=== PATIENT | female | born 1960 | race Asian ===

== ENCOUNTER 2021-02-13 14:49 | Emergency (ER) | payer OTHER, SELFPAY ==
[2021-02-13] VITALS (24 sets, daily range): BP systolic 122–186; BP diastolic 64–138; PULSE 65–175; RESP 12–28; TEMP 36.9; O2SAT 93–99; BMI 27.1
--- NOTE | 2021-02-13 15:02 | ED.GENADULT ---
HPI - General Adult General Chief complaint: Arrhythmia/Palpitations Stated complaint: heart beating fast Time Seen by Provider: 02/13/21 14:53 Source: patient Mode of arrival: Ambulatory Limitations: no limitations History of Present Illness HPI narrative: Patient is a 60-year-old female who arrives to the emergency department for a fast heart rate. She states that it started at 1215 today which is approximately 3 hours prior to arrival here in the ER. She was getting ready for lunch when the symptoms occurred. She did receive her COVID vaccine yesterday. She denies any chest pain does feel like her heart is beating fast. No shortness of breath. She has had symptoms like this in the past but they have all resolved on their own. She is not on anticoagulation. Related Data Previous Rx's Medication Instructions Recorded rivaroxaban [Xarelto] 15 mg PO DAILY 30 Days #30 tab 02/13/21 Allergies Allergy/AdvReac Type Severity Reaction Status Date / Time No Known Drug Allergies Allergy Verified 02/13/21 15:15 Review of Systems Constitutional Constitutional: Denies fever(s) and Denies headache(s) ENT Ears, Nose, Mouth, and Throat: Denies headache(s) Cardiovascular Cardiovascular: Denies chest pain, Reports rapid heart rate, Denies irregular heart rhythm and Denies dyspnea Respiratory Respiratory: Denies cough and Denies dyspnea Gastrointestinal Gastrointestinal: Denies abdominal pain, Denies nausea and Denies vomiting Genitourinary Genitourinary: Denies dysuria Genitourinary: Denies dysuria Musculoskeletal Musculoskeletal: Denies myalgias Integumentary/Breasts Skin/Breast: Denies rash Neurologic Neurologic: Denies headache(s) Hematologic/Lymphatic On Anticoagulants: No Allergic/Immunologic Allergic/Immunologic: Denies urticaria Patient History Medical History Healthy adult Social History Smoking Status: Never smoker Exam Initial Vital Signs Initial Vital Signs: Vital Signs Temperature 98.4 F 02/13/21 14:50 Pulse Rate 175 H 02/13/21 14:50 Respiratory Rate 17 02/13/21 14:50 Blood Pressure 186/138 H 02/13/21 14:50 Pulse Oximetry 97 02/13/21 14:50 Const General: cooperative and comfortable Limitations: mental status not altered [facility] Head: normal to inspection and normocephalic Resp Effort & Inspection: normal respiratory effort Auscultation: clear to auscultation bilaterally Cardio Rate: tachycardic Rhythm: regular rhythm GI Inspection: non-distended Palpation: soft Skin Lesions: no lesions Rashes: no rashes Neuro General: patient alert, patient awake and patient oriented x3 Cognition: normal cognition Speech: speech normal Extrem General: normal to inspection and capillary refill normal Psych Appearance: grossly normal and well kempt Procedures Cardioversion Consent Signed: Yes Indication: Tachycardia Stability: Stable Number of attempts (shocks): 1 Joules used: 150 Cardiac rhythm post-cardioversion: Sinus rhythm Procedural Sedation Consent signed: Yes Time out performed: Yes Indication: cardioversion Presedation Evaluation: See HPI ASA Class: I Mallampati Airway Classification: Class I Preparation: monitor worker applied, pulse oximeter, capnometry used, supplemental O2 applied and suction/airway equipment at bedside Fentanyl: IV Fentanyl dose (mcg): 12 IV Propofol dose (mg): 50 Intraservice time/total sedation time (min): 10 ED Sedation Level: Moderate (Concious) Patient Tolerated Procedure: Well Course Orders Ordered: ED Orders 02/13/21 14:54 EKG-12 Lead Stat 02/13/21 15:03 RT Consult Eval and Treat Now 02/13/21 15:05 Magnesium Stat 02/13/21 15:08 Basic Metabolic Panel Stat Complete Blood Count AUTO DIFF Stat 02/13/21 15:35 EKG-12 Lead Stat Discontinued Medications Fentanyl (Fentanyl 100 Mcg/2 Ml Inj) 12.5 mcg IV NOW ONE Stop: 02/13/21 15:08 Last Admin: 02/13/21 15:15 Dose: 12.5 mcg Documented by: MEETA Sodium Chloride (Normal Saline 0.9%) 1,000 mls @ 1,000 mls/hr IV BOLUS ONE Stop: 02/13/21 16:02 Last Admin: 02/13/21 15:15 Dose: 1,000 mls/hr Documented by: MEETA Propofol (Propofol 200 Mg/20 Ml Vial) 10 mg IV NOW ONE Stop: 02/13/21 15:08 Last Admin: 02/13/21 15:16 Dose: 10 mg Documented by: MEETA Rivaroxaban (Rivaroxaban 10 Mg Tablet) 15 mg PO NOW ONE Stop: 02/13/21 16:26 Vital Signs Vital signs: Vital Signs - 8 hr 02/13/21 14:50 02/13/21 14:56 02/13/21 14:57 Temperature 98.4 F Pulse Rate 175 H 170 H 168 H Respiratory Rate 17 Blood Pressure 186/138 H 186/138 H Blood Pressure [Left Arm] Pulse Oximetry 97 97 99 02/13/21 15:00 02/13/21 15:19 02/13/21 15:22 Temperature Pulse Rate 172 H 167 H Respiratory Rate 19 18 12 Blood Pressure Blood Pressure [Left Arm] Pulse Oximetry 99 98 02/13/21 15:26 02/13/21 15:30 02/13/21 15:32 Temperature Pulse Rate 84 160 H 88 Respiratory Rate 18 19 21 Blood Pressure Blood Pressure [Left Arm] Pulse Oximetry 93 98 95 02/13/21 15:33 02/13/21 15:38 02/13/21 15:45 Temperature Pulse Rate 80 79 Respiratory Rate 18 23 Blood Pressure 143/64 H Blood Pressure [Left Arm] 122/69 127/75 Pulse Oximetry 95 95 Medical Decision Making Lab Data Lab results reviewed: Yes I reviewed the patient's lab results. Result diagrams: 02/13/21 15:08 02/13/21 15:08 Labs: Lab Results 02/13/21 02/13/21 02/13/21 Range/Units 15:05 15:08 15:08 WBC 8.3 (4.5-11.0) X10^3/uL RBC 5.25 H (4.0-5.2) X10^6/uL Hgb 16.0 (12.0-16.0) g/dL Hct 48.5 H (36-46) % MCV 92.4 (80-100) fL MCH 30.6 (26-34) PG MCHC 33.1 (30-36) % RDW 13.1 (11.6-14.8) % Plt Count 216 (150-400) X10^3/uL Neut % (Auto) 64.9 (50-75) % Lymph % (Auto) 28.0 (25-40) % [place] % (Auto) 5.2 (3-14) % Eos % (Auto) 1.4 L (2-4) % Baso % (Auto) 0.5 (0-2) % Neut # (Auto) 5400 (5584-0424) /uL Lymph # (Auto) 2300 (4130-9209) /uL [place] # (Auto) 400 (0-900) /uL Eos # (Auto) 100 (0-450) /uL Baso # (Auto) 0 (0-100) /uL Sodium 144 (137-145) mmol/L Potassium 4.2 (3.4-5.1) mmol/L Chloride 106 (98-107) mmol/L Carbon Dioxide 30 (22-32) mmol/L BUN 15 (7-17) mg/dL Creatinine 0.57 (0.52-1.04) mg/dL Estimated GFR > 60.0 (>60) mL/min BUN/Creatinine Ratio 26.3 H (6-22) Glucose 138 H (80-110) mg/dL Calcium 10.1 (8.4-10.2) mg/dL Magnesium 2.4 H (1.6-2.3) mg/dL Point of Care Testing Test Results Negative Point of care testing: Point of Care Testing Test Results Negative ECG Data Attestation: I personally reviewed and interpreted this ECG as follows: Prior ECG tracings: not available for review Interpretation: Supraventricular tachycardia Ventricular rate 167 Normal axis Normal QRS QTC [address] T wave changes Post cardioversion EKG Sinus rhythm Ventricular rate is 75 Normal QRS Normal QTC LVH No ST T wave changes MDM Narrative Medical decision making narrative: Patient was tachycardic upon arrival. Was difficult to see whether it was a sinus tachycardia or an atrial fibrillation/atrial flutter. Consent was signed and she was cardioverted with 12.5 of fentanyl and 50 of propofol. She had no apnea. No hypotension. No hypoxia. She tolerated the procedure very well. She was sinus rhythm afterwards. 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 She has an appointment with her primary doctor in 1 week from now. She was instructed to keep that appointment. She was given return precautions. She was given 1st dose of Xarelto here and sent home with a prescription for the next month. She expressed understanding and agreement. Discharge Plan Departure Patient Disposition: Home Clinical Impression: Supraventricular tachycardia Instructions: Arrhythmias Activity Restrictions/Additional Instructions: Take the anticoagulation as directed. Keep all of your scheduled medical appointments to include appointment with your primary doctor next week. Also recommend that you contact your motor vehicle license clerk for follow-up. Return to the emergency department for any new or worsening symptoms Prescriptions: New Xarelto 15 mg tablet 15 mg PO DAILY 30 Days Qty: 30 RF: 0
[2021-02-13] MEDS: fentaNYL 100 MCG/2 ML INJ 12.5 MCG IV (15:15)
[2021-02-13] MEDS: SODIUM CHLORIDE 0.9% 1,000 ML 1000 ML IV (15:15)
[2021-02-13] MEDS: propofoL 200 MG/20 ML VIAL 10 MG IV (15:16)
[2021-02-13 15:26] LABS: Add Manual Diff / Slide Review NO; Basophils Absolute Auto 0 /uL (0-100); Basophils Percent Auto 0.5 % (0-2); Eosinophils Absolute Auto 100 /uL (0-450); Eosinophils Percent Auto 1.4 % (2-4); Hematocrit 48.5 % (36-46); Lymphocytes Absolute Auto 2300 /uL (1100-4500); Mean Corpuscular HGB Conc 33.1 % (30-36); Mean Corpuscular Hemoglobin 30.6 PG (26-34); Mean Corpuscular Volume 92.4 fL (80-100); Monocytes Absolute Auto 400 /uL (0-900); Monocytes Percent Auto 5.2 % (3-14); Neutrophils Absolute Auto 5400 /uL (1500-7000); Neutrophils Percent Auto 64.9 % (50-75); Platelet Count 216 X10^3/uL (150-400); Red Blood Cell Count 5.25 X10^6/uL (4.0-5.2); Red Cell Distribution Width 13.1 % (11.6-14.8); White Blood Cell Count 8.3 X10^3/uL (4.5-11.0)
[2021-02-13 15:27] LABS: BUN Creatinine Ratio 26.3 (6-22); Blood Urea Nitrogen 15 mg/dL (7-17); Calcium 10.1 mg/dL (8.4-10.2); Carbon Dioxide 30 mmol/L (22-32); Chloride 106 mmol/L (98-107); Estimated Glomerular Filt Rate > 60.0 mL/min (>60); Glucose 138 mg/dL (80-110); HEMOLYSIS 17 (0-50); Potassium 4.2 mmol/L (3.4-5.1); Sodium 144 mmol/L (137-145)
[2021-02-13 15:50] LABS: Magnesium 2.4 mg/dL (1.6-2.3)
[2021-02-13] MEDS: RIVAROXABAN 10 MG TABLET 15 MG PO (16:42)
== END 2021-02-13 16:54 | disposition home or self-care (01) ==
PROVIDERS: Emergency Provider Emergency Medicine
DX: I47.1 Supraventricular tachycardia (principal)
CPT/HCPCS: 36415; 80048; 83735; 85025; 92960; 93005; 96361; 96374; 96375; 99152; 99285; J2704; J3010

== ENCOUNTER → 2021-06-30 13:03 | Outpatient (CLI) | payer OTHER, SELFPAY ==
--- NOTE | 2021-06-30 | DI.ECHO.S_ITS ---
[place] +---------+ [facility] +---------+ : : [address] : : : : [phone] : : : : Phone: [phone]+ Echocardiogram Report + + :Name: SUZY RENEE Study Date: 06/30/2021 Height: 61 in : :[facility] ReadingLocation: Weight: 140 lb : : Gender: Female BSA: 1.6 m2 : :: 1960 Age: 60 yrs BP: 185/101 mmHg: :Reason For Study: Murmur : :Ordering Physician: Randy : :Miguel A Herman Performed By: Claudio Cantu : :Referring: RANDY HERMAN : + + Interpretation Summary 1) Normal left ventricular size, wall motion, and systolic function (EF 55- 60%). 2) Normal right ventricular size and functionl 3) Nno significant valvular abnormalities. 4) Hypertension present during the study (BP 185/101mmHg). 5) No prior Echo available for comparison. Procedure: A two-dimensional transthoracic echocardiogram with color flow and Doppler was performed. The study quality was technically adequate. There is no prior echocardiogram noted for this patient. The patient was in sinus rhythm with heart rates between 50-58 bpm during the exam. Left Ventricle: The left ventricle is normal in size and wall thickness. Left ventricular systolic function is normal. The ejection fraction is estimated to be 55-60%. There are no focal wall motion abnormalities. Diastolic parameters suggest probable normal left ventricular diastolic function and normal filling pressures. Right Ventricle: The right ventricle is normal in size and function. Atria: Both atria are normal in size. There is no Doppler evidence for an interatrial shunt. Mitral Valve: The mitral valve is normal in structure and function. There is trace mitral regurgitation. Aortic Valve: The aortic valve is normal in structure and function. There is no aortic valve stenosis. No aortic regurgitation is present. Tricuspid Valve: The tricuspid valve is normal in structure and function. There is a trace or physiologic amount of tricuspid regurgitation. Pulmonary artery pressures cannot be estimated because of the lack of a measurable TR jet velocity but the IVC suggests a CVP of around 3 mmHg. Pulmonic Valve: The pulmonic valve is not well visualized. There is no pulmonic valvular regurgitation. Great Vessels: The aortic root is normal size. The dimensions of the ascending aorta are normal. The IVC is of normal diameter and collapses greater than 50% with a sniff. This suggests a low right atrial pressure of 3 mm Hg. Pericardium/ Pleura There is no pericardial effusion. There is no pleural effusion. MMode/2D Measurements & Calculations LVIDd: 4.9 cm LVOT diam: 2.0 cm LVIDs: 3.0 cm Ao root diam: 3.0 cm FS: 38.8 % asc Aorta Diam: 3.6 cm IVSd: 0.80 cm LVPWd: 0.60 cm LV erwin. diameter/BSA (cm/m^2): 3.0 LV sys. diameter/BSA (cm/m^2): 1.8 LA dimension: 3.5 cm RA long axis: 4.1 cm LA A2 area: 19.4 cm2 LA A4 area: 12.1 cm2 LA length (vol): 5.2 cm LA vol: 38.2 ml LA vol index: 23.6 ml/m2 TAPSE_phl: 1.8 cm Doppler Measurements & Calculations Ao V2 max: 146.0 cm/sec LVOT Max Braulio: 110.0 cm/sec Ao V2 mean: 99.7 cm/sec LV V1 max P.8 mmHg Ao max P.0 mmHg LV V1 VTI: 26.1 cm Ao mean P.0 mmHg MAIDA(I,D): 2.6 cm2 Ao V2 VTI: 32.1 cm MAIDA(V,D): 2.4 cm2 sev ratio: 0.81 MAIDA indexed to BSA (cm^2/m^2): 1.6 MV E max braulio: 65.1 cm/sec PA V2 max: 77.5 cm/sec MV A max braulio: 95.5 cm/sec PA V2 mean: 55.2 cm/sec MV E/A: 0.68 PA mean P.0 mmHg Med Peak E' Braulio: 7.9 cm/sec PA pr(Accel): 54.3 mmHg E/E' med: 8.2 Lat Peak E' Braulio: 11.3 cm/sec E/E' lat: 5.8 E/e' average: 7.0 MV dec time: 0.22 sec SV(LVOT): 82.0 ml AV VR_phl: 0.75 MAIDA(VTI)/BSA_phl: 1.6 MV P1/2t-pr_phl: 65.0 msec Reading Physician:06:39 PM
--- NOTE | 2021-06-30 19:35 | DI.NM.S_ITS ---
DATE OF SERVICE: 06/30/2021 PROCEDURE: Exercise stress test. INDICATION: Palpitation. CARDIAC STRESS: The patient underwent exercise stress test under the supervision of an attending staff. She walked on Perez protocol for 7 minutes and 49 seconds, achieved 91 percent of target heart rate with maximum heart rate 143 beats per minute. Baseline blood pressure 136/80. Peak blood pressure 200/94. 10.1 METs of workload achieved. ZAHCARY -18 percent. No ischemic symptoms. Baseline rhythm was sinus. During stress, there were no convincing ischemic changes. There were no significant arrhythmias. CONCLUSION: Exercise stress test is negative for inducible ischemia. Normal hemodynamic response. No anginal symptoms. Functional aerobic impairment -18 percent and 10.1 metabolic equivalents of workload. Overall low-risk exercise stress test. Rossy Carrillo - Johnny/annamarie doc#: [id number]/job#: [id number] dd: 06/30/2021 17:37:00 dt: 06/30/2021 19:03:00 DICTATING /COPIES TO: Jailyn Briseno MD COPIES MNE: ADRIANO;
== END ==
PROVIDERS: Referring Provider Internal Medicine Cardiovascular Disease; Visit Provider Internal Medicine Cardiovascular Disease
DX: R00.0 Tachycardia, unspecified (principal); R01.1 Cardiac murmur, unspecified; R00.2 Palpitations
CPT/HCPCS: 93017; 93306

== ENCOUNTER 2021-09-09 11:46 | Inpatient (IN) | payer OTHER, SELFPAY ==
[2021-09-09] VITALS (35 sets, daily range): BP systolic 84–135; BP diastolic 51–89; PULSE 56–98; RESP 16–28; TEMP 36.3–36.9; O2SAT 93–99; BMI 26.6
--- NOTE | 2021-09-09 12:07 | DI.RAD.S_ITS ---
PROCEDURE: XR CHEST 1V INDICATIONS: Chest pain TECHNIQUE: One view of the chest was acquired. COMPARISON: None. FINDINGS: Surgical changes and devices: None. Lungs and pleura: Lungs are clear. No pleural effusions or pneumothorax. Mediastinum: Mediastinal contours appear normal. Heart size is normal. Bones and chest wall: No suspicious bony lesions. Overlying soft tissues appear unremarkable. IMPRESSION: No acute cardiopulmonary process demonstrated radiographically. Dictated by: Ruddy Mtz M.D. on 09/09/2021 at 12:47 Approved by: Ruddy Mtz M.D. on 09/09/2021 at 12:47
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
[2021-09-09 12:58] LABS: Add Manual Diff / Slide Review NO; Basophils Absolute Auto 0 /uL (0-100); Basophils Percent Auto 0.2 % (0-2); Eosinophils Absolute Auto 0 /uL (0-450); Eosinophils Percent Auto 0.2 % (2-4); Hematocrit 41.4 % (36-46); Lymphocytes Absolute Auto 1200 /uL (1100-4500); Lymphocytes Percent Auto 11.4 % (25-40); Mean Corpuscular HGB Conc 33.8 % (30-36); Mean Corpuscular Volume 91.5 fL (80-100); Monocytes Absolute Auto 500 /uL (0-900); Monocytes Percent Auto 4.5 % (3-14); Neutrophils Absolute Auto 8600 /uL (1500-7000); Neutrophils Percent Auto 83.7 % (50-75); Platelet Count 194 X10^3/uL (150-400); Red Blood Cell Count 4.52 X10^6/uL (4.0-5.2); Red Cell Distribution Width 12.3 % (11.6-14.8); White Blood Cell Count 10.3 X10^3/uL (4.5-11.0)
[2021-09-09 13:12] LABS: Alanine Aminotransferase 18 IU/L (<35); Albumin 4.4 g/dL (3.5-5.0); Albumin Globulin Ratio 1.4 (1.0-2.8); Alkaline Phosphatase 89 U/L (38-126); Aspartate Aminotransferase 31 IU/L (14-36); BUN Creatinine Ratio 30.2 (6-22); Bilirubin Total 0.5 mg/dL (0.2-1.3); Blood Urea Nitrogen 16 mg/dL (7-17); Calcium 9.4 mg/dL (8.4-10.2); Carbon Dioxide 21 mmol/L (22-32); Chloride 106 mmol/L (98-107); Creatine Kinase 105 U/L (30-135); Estimated Glomerular Filt Rate > 60.0 mL/min (>60); Globulin 3.2 g/dL (1.7-4.1); Glucose 123 mg/dL (80-110); HEMOLYSIS < 15 (0-50); Lipase 47 U/L (23-300); Potassium 4.4 mmol/L (3.4-5.1); Sodium 136 mmol/L (137-145); Total Protein 7.6 g/dL (6.3-8.2)
[2021-09-09 13:27] LABS: CKMB % Relative Index 4.4 % (1.5-5.0); Creatine Kinase MB 4.67 ng/mL (<2.37)
[2021-09-09 14:15] LABS: NT-proBNP (BNP-Adult 18+) 122 pg/mL (<125)
[2021-09-09] MEDS: ASPIRIN 81 MG CHEW TAB 324 MG PO (14:18)
[2021-09-09] MEDS: HEPARIN 5,000 UNIT/ML VIAL 4000 UNIT IV (14:21)
[2021-09-09] MEDS: HEPARIN DRIP 25,000 UNIT/500 ML IV.SOLN 15.567 UNIT IV (14:22)
[2021-09-09 14:26] LABS: D Dimer < 200 ng/mL (<230)
[2021-09-09 14:27] LABS: Prothrombin Time 11.1 SECONDS (10.1-12.7)
[2021-09-09 14:29] LABS: PTT Partial Thromboplastin Tim 32 SECONDS (26.4-36.2)
[2021-09-09 16:01] LABS: COVID19 -Nasal RAPID Negative (Negative)
[2021-09-09] MEDS: NITROGLYCERIN 0.4 MG SL TAB SL (16:17)
[2021-09-09] MEDS: CLOPIDOGREL 75 MG TABLET 600 MG PO (17:47)
[2021-09-09 19:16] LABS: COVID19 - ADMIT (NP swab/PCR) Negative (Negative)
--- NOTE | 2021-09-09 19:26 | PC.ADMIT ---
[address] Admission Note: Patient arrived to floor at 18:35, Alert and oriented x 4, shown how to use call light, patient on heparin drip infusing at 15.5ml/hr. Denies SOB or chest pain. Bed brakes locked. VSS, afebrile. The patient,Rossy Carrillo,60 y/o, was given written information regarding hospital policies, unit procedures and contact persons. Patient's smoking status: Never smoker. Vital Signs - 8 hr 09/09/21 12:05 09/09/21 14:30 09/09/21 14:31 Temperature 98.0 F Pulse Rate 98 H 79 Respiratory Rate 16 28 H Blood Pressure 135/89 108/78 108/78 Pulse Oximetry 97 96 09/09/21 15:00 09/09/21 15:31 09/09/21 15:32 Temperature Pulse Rate 72 80 79 Respiratory Rate 19 Blood Pressure 109/72 118/81 Pulse Oximetry 96 98 96 09/09/21 15:45 09/09/21 16:00 09/09/21 16:15 Temperature Pulse Rate 72 76 72 Respiratory Rate 23 24 20 Blood Pressure 116/79 119/85 112/77 Pulse Oximetry 95 96 95 09/09/21 16:17 09/09/21 16:20 09/09/21 16:21 Temperature Pulse Rate 71 70 72 Respiratory Rate 20 23 22 Blood Pressure 110/77 109/68 103/63 Pulse Oximetry 95 95 94 09/09/21 16:23 09/09/21 16:24 09/09/21 16:26 Temperature Pulse Rate 71 70 73 Respiratory Rate 22 24 22 Blood Pressure 96/62 85/60 L 96/60 Pulse Oximetry 94 94 93 09/09/21 16:27 09/09/21 16:30 09/09/21 16:32 Temperature Pulse Rate 71 71 69 Respiratory Rate 20 18 21 Blood Pressure 96/58 L 98/61 94/62 Pulse Oximetry 94 94 94 09/09/21 16:33 09/09/21 16:36 09/09/21 16:39 Temperature Pulse Rate 70 71 68 Respiratory Rate 20 21 21 Blood Pressure 96/63 103/68 95/65 Pulse Oximetry 94 94 94 09/09/21 16:45 09/09/21 17:00 09/09/21 17:15 Temperature Pulse Rate 68 76 72 Respiratory Rate 26 H 25 H 26 H Blood Pressure 102/59 L 121/79 111/72 Pulse Oximetry 95 96 95 09/09/21 17:30 09/09/21 17:45 09/09/21 18:00 Temperature Pulse Rate 73 71 73 Respiratory Rate 24 24 22 Blood Pressure 106/67 101/65 Pulse Oximetry 96 95 96 09/09/21 18:01 09/09/21 18:15 09/09/21 18:35 Temperature 97.7 F Pulse Rate 70 72 67 Respiratory Rate 21 20 17 Blood Pressure 128/62 104/67 111/73 Pulse Oximetry 96 97 96
[2021-09-09 20:50] LABS: PTT Partial Thromboplastin Tim 113 SECONDS (26.4-36.2)
--- NOTE | 2021-09-09 20:50 | PC.NURSE ---
Addendum entered by Marcelle Jenkins R.N. 09/09/21 21:10: Per YESSENIA Ocasio, continue heparin drip, do not stop as protocol states. Follow rate change per protocol. Next PTT in 6 hours at 03:40, lab notified. 

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
[2021-09-10] VITALS (33 sets, daily range): BP systolic 82–134; BP diastolic 47–76; PULSE 50–80; RESP 16–26; TEMP 36.2–36.6; O2SAT 94–99
[2021-09-10] MEDS: LACTATED RINGERS 1,000 ML 1000 ML IV (00:10)
[2021-09-10 00:34] LABS: PTT Partial Thromboplastin Tim 53 SECONDS (26.4-36.2)
[2021-09-10 04:11] LABS: Add Manual Diff / Slide Review NO; Basophils Absolute Auto 0 /uL (0-100); Basophils Percent Auto 0.7 % (0-2); Eosinophils Absolute Auto 100 /uL (0-450); Eosinophils Percent Auto 1.4 % (2-4); Hematocrit 37.6 % (36-46); Hemoglobin 12.7 g/dL (12.0-16.0); Lymphocytes Absolute Auto 2100 /uL (1100-4500); Lymphocytes Percent Auto 35.4 % (25-40); Mean Corpuscular HGB Conc 33.9 % (30-36); Mean Corpuscular Hemoglobin 30.6 PG (26-34); Mean Corpuscular Volume 90.5 fL (80-100); Monocytes Absolute Auto 400 /uL (0-900); Monocytes Percent Auto 6.5 % (3-14); Neutrophils Absolute Auto 3400 /uL (1500-7000); Platelet Count 157 X10^3/uL (150-400); Red Blood Cell Count 4.16 X10^6/uL (4.0-5.2); Red Cell Distribution Width 12.7 % (11.6-14.8)
[2021-09-10 04:19] LABS: BUN Creatinine Ratio 26.1 (6-22); Blood Urea Nitrogen 18 mg/dL (7-17); Calcium 9.1 mg/dL (8.4-10.2); Carbon Dioxide 23 mmol/L (22-32); Chloride 110 mmol/L (98-107); Cholesterol 157 mg/dL (140-199); Estimated Glomerular Filt Rate > 60.0 mL/min (>60); Glucose 123 mg/dL (80-110); HDL Cholesterol 41 mg/dL (40-60); HEMOLYSIS < 15 (0-50); LDL Cholesterol Calculated 79 mg/dL (<100); Potassium 4.1 mmol/L (3.4-5.1); Sodium 139 mmol/L (137-145); Triglycerides 186 mg/dL (35-150)
--- NOTE | 2021-09-10 04:37 | PC.NURSE ---
On first assessment pt found hypotensive and bradycardic 82/49 with a MAP of 58, 1 liter bolus intiated then contnuous LR@60ml ordered and a PTT of 113, Lab called to do stat PTT draw, result with result of a 53. pt is calm and relaxed, denies c/o pain despite postive troponin and EKG changes. Pt up to BSC with SBA voided 650 ml Clear yellow UOP. Pt has been monitored closely all night with improvement in Blood pressure. However pt usually Hypertensive SBP > 108 (highest) 0400. Pt is hopefully pending transfer to [facility] ([phone]) as bed comes available in the AM face sheet, imaging and covid result sent. If changes or deterioration occur contact business process coordinator.
[2021-09-10] MEDS: LACTATED RINGERS 1,000 ML 60 ML IV (04:48)
[2021-09-10 05:05] LABS: Thyroid Stimulating Hormone 1.02 uIU/mL (0.47-4.68)
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
--- NOTE | 2021-09-10 05:32 | PC.NURSE ---
0530 09/10/2021 Curt () updated via phone.
--- NOTE | 2021-09-10 05:34 | PC.NURSE ---
0509 09/10/2021 Norah from [facility] (transfer center) updated. Patient has been offered to [facility], and [facility]. Still working on transfer.
--- NOTE | 2021-09-10 05:53 | DI.CT.S_ITS ---
PROCEDURE: CT ANGIO CHEST PE PROTOCOL INDICATIONS: R/O PE TECHNIQUE: After the administration of intravenous contrast, 2 mm thick sections acquired from the pulmonary apices to the posterior costophrenic angles. 3-dimensional maximum intensity projection (MIP) coronal and sagittal reformats were then acquired through the thorax. For radiation dose reduction, the following was used: automated exposure control, adjustment of mA and/or kV according to patient size. COMPARISON: None. FINDINGS: Image quality: Excellent. Pulmonary arteries: Pulmonary arteries are normal in size, and demonstrate no intraluminal filling defects to suggest central pulmonary embolism. Lungs and pleura: Lungs are clear. No pleural effusions or pneumothorax. Diffuse mild bronchial wall thickening. Minimal patchy atelectasis. Mediastinum: Heart size is normal, without pericardial effusion. Moderate coronary artery calcifications. No mediastinal or hilar adenopathy. Thoracic aorta is normal in caliber and enhancement. Esophagus is normal in caliber, without hiatal hernia. Bones and chest wall: No suspicious bony lesions. Ribs and thoracic spine appear intact throughout. Thyroid gland is unremarkable. No axillary or supraclavicular adenopathy. Abdomen: Gallbladder wall thickening and possible gallbladder wall edema. Mild gallbladder distension. IMPRESSION: 1. No evidence of acute pulmonary emboli. 2. Mild diffuse bronchial wall thickening and minimal atelectasis. 3. Abnormal appearance of the gallbladder wall. If suspect acute cholecystitis, recommend right upper quadrant ultrasound. Comment: Final report is concordant with preliminary interpretation provided by [facility]. Comment: Possible acute cholecystitis was discussed with Dr. Aysha Milan on 09/10/2021 at 1035 hours Dictated by: Mert Ag M.D. on 09/10/2021 at 9:54 Approved by: Mert Ag M.D. on 09/10/2021 at 10:35
--- NOTE | 2021-09-10 05:57 | DI.ECHO.S_ITS ---
[place] [facility]---------+ [facility] +---------+ : : [address] : : : : [phone] : : : : Phone: [phone] Echocardiogram Report + + :Name: SUZY RENEE Study Date: 09/10/2021 Height: 61.5 in: :[facility] ReadingLocation: Weight: 143 lb : : Gender: Female BSA: 1.6 m2 : :: 1960 Age: 60 yrs BP: 103/64 mmHg: :Reason For Study: CHEST PAIN, ELEVATED TROPONINS : :Ordering Physician: XAVIER, : :CLARISA Performed By: Dorothy Atwood : :Referring: CLARISA WALKER : + + Interpretation Summary This is a limited echocardiogram performed to reevaluate left ventricular systolic function and regional wall motion. Left ventricular systolic function is borderline reduced with an estimated ejection fraction of 50 to 55% with new severe hypokinesis of the distal half of the posterior wall, extending into the posterolateral wall and apex that was not seen on the previous study, with resultant mild reduction in overall left ventricular systolic function. There are no other focal wall motion abnormalities. The right ventricle appears normal and unchanged from the previous study. Right ventricular systolic pressure is likely around 25 mmHg with a CVP of 3 mmHg. The left atrium appears borderline enlarged and measures slightly larger compared to the previous study. There is mild tricuspid regurgitation that is slightly more prominent compared to this previous study but no other obvious significant functional valvular abnormality although this was not thoroughly investigated. Procedure: A two-dimensional transthoracic echocardiogram with color flow and Doppler was performed in limited views only to assess wall motion and ejection fraction.. The study quality was technically good. Comparison is made with the echocardiogram of 06/30/2021. The patient was in sinus bradycardia with heart rates between 50-60 bpm during the exam. Left Ventricle: The left ventricle is normal in size and wall thickness. Left ventricular systolic function is borderline reduced. The ejection fraction is estimated to be 50-55%. There is now severe hypokinesis in the distal half of the posterior wall extending into the posterolateral wall and apex which is new from the previous study. There are no other focal wall motion abnormalities. Right Ventricle: The right ventricle is normal in size and function. This is unchanged compared to the previous study. Atria: The left atrium is borderline dilated. The left atrium has mildly increased in size since the prior echo exam. Right atrial size is normal. Aortic Valve: The aortic valve is trileaflet. The aortic valve opens well. Tricuspid Valve: There is mild tricuspid regurgitation. This is more prominent compared to the previous study. The right ventricular systolic pressure is estimated to be at least 25 mmHg based on an estimated right atrial pressure of 3 mm Hg. Great Vessels: The IVC is of normal diameter and collapses greater than 50% with a sniff. This suggests a low right atrial pressure of 3 mm Hg. Pericardium/ Pleura There is no pericardial effusion. There is no pleural effusion. MMode/2D Measurements & Calculations LVIDd: 4.5 cm LA A2 area: 18.2 cm2 LVIDs: 3.1 cm LA A4 area: 17.7 cm2 FS: 30.7 % LA length (vol): 5.0 cm IVSd: 0.79 cm LA vol: 55.2 ml LVPWd: 0.87 cm LA vol index: 33.5 ml/m2 LV erwin. diameter/BSA (cm/m^2): 2.7 LV sys. diameter/BSA (cm/m^2): 1.9 RA long axis: 4.6 cm RVD1 (basal): 3.6 cm RA area: 14.1 cm2 TAPSE: 1.6 cm RA vol: 37.2 ml RA : 22.6 ml/m2 IVC diam: 1.2 cm Doppler Measurements & Calculations TR max aubrey: 236.6 cm/sec TR max P.4 mmHg Reading Physician:09:44 AM
[2021-09-10 09:07] LABS: Hematocrit 37.1 % (36-46); Hemoglobin 12.7 g/dL (12.0-16.0); Mean Corpuscular HGB Conc 34.2 % (30-36); Mean Corpuscular Hemoglobin 31.2 PG (26-34); Mean Corpuscular Volume 91.2 fL (80-100); Platelet Count 154 X10^3/uL (150-400); Red Blood Cell Count 4.07 X10^6/uL (4.0-5.2); Red Cell Distribution Width 12.6 % (11.6-14.8); White Blood Cell Count 5.2 X10^3/uL (4.5-11.0)
[2021-09-10 09:13] LABS: PTT Partial Thromboplastin Tim 56 SECONDS (26.4-36.2)
[2021-09-10 09:16] LABS: Creatine Kinase 77 U/L (30-135); Magnesium 2.1 mg/dL (1.6-2.3)
[2021-09-10] MEDS: CLOPIDOGREL 75 MG TABLET PO (09:51)
[2021-09-10] MEDS: ASPIRIN EC 81 MG TABLET PO (09:51)
--- NOTE | 2021-09-10 09:59 | PC.NURSE ---
Addendum entered by Sd Olsen R.N. 09/10/21 11:17: 1100- Pt reports she does not fully understand the plan of care due to language barrier. Requested vice president network phone from [facility] and was told it is out of service at the moment due to insufficient battery. Unknown charge time. 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 Original Note: 0900- Dr. Milan on rounds. Reported BP WNL after receiving IVFs. HR is mostly in the 50s, Sinus bradycardia. Reported qtc .52. Requested clarification of orders for diltiazem. Instruction received to hold 0900 dose. Plan is for pt to transfer to higher level of care for cardiac cath, potentially today pending bed availability. Updated pt on plan of care. She verbalizes understanding. Dr. Milan also gave orders to transfer pt to medical floor from ICU. Coordinator updated.
--- NOTE | 2021-09-10 10:34 | DI.US.S_ITS ---
PROCEDURE: US ABDOMEN LIMITED INDICATIONS: RULE OUT CHOLECYSTITIS TECHNIQUE: Real-time focused scanning was performed of the abdomen, with image documentation. COMPARISON: [facility], CT, CT ANGIO CHEST PE PROTOCOL, 09/10/2021, 6:05. FINDINGS: No findings of gallstones or sludge are seen. The gallbladder wall is minimally thickened at 3.5 mm. No specific pericholecystic fluid is seen. The sonographic Salazar sign is negative. The liver is normal in size and demonstrates no focal lesions. There is no biliary dilatation, the common bile duct measures 5-6 mm. No significant pancreatic abnormality is seen on these images. IMPRESSION: Minimal gallbladder wall thickening is seen, without additional sonographic signs of cholecystitis. No biliary dilatation. Dictated by: Kehinde Martines M.D. on 09/10/2021 at 11:01 Approved by: Kehinde Martines M.D. on 09/10/2021 at 11:03
[2021-09-10 14:56] LABS: PTT Partial Thromboplastin Tim 48 SECONDS (26.4-36.2)
--- NOTE | 2021-09-10 17:38 | CM.DANOTE ---
Brief Note: Reviewed chart. Patient is a 60yr old female admitted to ICU with chest pain. Per provider patient currently ICU status requiring cardiac cath. Nursing and provider attempting transfer. P: Transfer to higher level of care. [facility] Discharge Planning/Care Management CM Discharge Assessment Start: 09/10/21 17:36 Freq: Status: Active Protocol: Document 09/10/21 17:36 K[facility] (Rec: 09/10/21 17:38 KJS [id number]) Discharge Planning Assessment Assigned Flooring Machine Feeder [place] Contact Information Curt Carrillo (spouse) ph# Advance Directives? No Advance Directives on File No History Provided By Patient Prior Living Arrangements House Household Members spouse Discharge Plan Transfer to Higher Level of Care Review Status In Process Next Review Type Continued Stay Review
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
[2021-09-10 21:39] LABS: PTT Partial Thromboplastin Tim 55 SECONDS (26.4-36.2)
--- NOTE | 2021-09-10 22:08 | PC.NURSE ---
Addendum entered by Vaishali To R.N. 09/10/21 22:56: correction heparin infusing at 13.5, not 14.5 Original Note: Evening shift note: Pt A/Ox 4, able to understand basic information, but 1st language is Filipino. Daughter is able to translate for patient and prefers that we call her to translate when patient does not understand. Pt has been accepted at [facility], but we are waiting for a bed prior transfer for a cardiac cath. Heparin is infusing per protocol, most recent APTT is 55, heparin is infusing at 14.5 units/hr, this is within the target range requiring no changes to gtt, next APTT in am per protocol. Bed low and locked, call light within reach, bed low and locked, will continue to monitor
[2021-09-11] VITALS (8 sets, daily range): BP systolic 114–122; BP diastolic 59–69; PULSE 52–69; RESP 16–18; TEMP 35.9–36.9; O2SAT 94–97
[2021-09-11 05:04] LABS: INR 1.1 (0.9-1.3); Prothrombin Time 11.9 SECONDS (10.1-12.7)
[2021-09-11] MEDS: HEPARIN DRIP 25,000 UNIT/500 ML IV.SOLN 13.5 UNIT IV (05:08)
[2021-09-11 05:49] LABS: PTT Partial Thromboplastin Tim 90 SECONDS (26.4-36.2)
[2021-09-11] MEDS: CLOPIDOGREL 75 MG TABLET PO (08:57)
[2021-09-11] MEDS: ASPIRIN EC 81 MG TABLET PO (08:58)
[2021-09-11] MEDS: METOPROLOL ER 25 MG TABLET PO (11:05)
[2021-09-11 12:42] LABS: PTT Partial Thromboplastin Tim 43 SECONDS (26.4-36.2)
--- NOTE | 2021-09-11 16:21 | PM.PN.1 ---
Subjective Subjective Date Patient Seen: 09/11/21 Interval history: 60 y/o female admitted to the hospital for a NSTEMI. She has had no further chest pain since admission. She denies shortness of breath or nausea. She and her family would like to know if she can discharge home and return for cardiac cath as outpatient. I have spoken to the transfer center twice, and [facility] Transfer center today and no beds available at this time. Exam Vital Signs (past 8 hours): - 09/11/21 12:00 09/11/21 12:26 Temperature 96.8 F L Pulse Rate 60 69 Respiratory Rate 18 Blood Pressure 122/68 Pulse Oximetry 95 Oxygen Delivery Method Room Air Oxygen Flow Rate 0 Narrative Exam Narrative: Pleasant female resting comfortably in no distress Resp Other: Lungs: clear to auscultation Cardio Other: RRR nl Sl S2 GI Other: Abd: soft/ nontender non distended Extrem Other: no edema Objective Labs Result Diagrams: 09/10/21 08:00 09/10/21 03:50 Labs: Laboratory Results - last 24 hr 09/10/21 09/11/21 09/11/21 21:23 04:43 04:43 PT 11.9 INR 1.1 APTT 55 H 90 H* D 09/11/21 12:10 PT INR APTT 43 H D PFSH Medical History (Updated 09/09/21 @ 23:16 by NITZA Cota) Atrial fibrillation by electrocardiogram Essential hypertension History of uterine fibroid Hyperlipidemia associated with type 2 diabetes mellitus Non-insulin dependent type 2 diabetes mellitus Tobacco abuse Surgical History (Updated 09/09/21 @ 23:16 by NITZA Cota) History of myomectomy Family History Mother Diabetes mellitus Father Hypertension Social History household members: spouse Smoking Status: Never smoker Assessment & Plan Assessment & Plan narrative: 60-year-old female admitted to the hospital with an NSTEMI -I peaked at 1.950, repeat troponin 1.050 patient with no chest pain -EKG reveals T-wave inversions in lateral leads -patient completed 48 hours of IV heparin, but will continue as we want to defer xeralto for afib until after cardiac cath -currently on 81 mg of aspirin, Plavix 75 mg daily, metoprolol 25 mg daily Paroxysmal atrial fibrillation -currently in sinus rhythm -Cardizem discontinue Will continue metoprolol -will start not initiate xeralto, continue heparin until transfer -unclear when patient will be transferred for cardiac catheterization Type 2 diabetes continue insulin, glucophage on hold I have spoke to both transfer center and [facility]. They continue to keep her on the list for cardiac catherization Time Spent With Patient Critical Care time: I spent a total of [] minutes of critical care time on this patient's care today; this time is exclusive of procedural time. Quality VTE Deep Vein Thrombosis/Pulmonary Embolism Present on Admission: No
[2021-09-11 17:14] LABS: PTT Partial Thromboplastin Tim 47 SECONDS (26.4-36.2)
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
--- NOTE | 2021-09-11 19:07 | PC.NURSE ---
transfer/DC 1905 pt transfered off of unit by EMT transport with all belongings and home medications from pharmacy.
== END 2021-09-11 21:08 | disposition short-term general hospital (02) | DRG 282 ==
LOC: ED 17:43 → AC 17:46 → ICU 09-10 04:44 → AC 09-11 08:47
PROVIDERS: Emergency Medicine; Internal Medicine; Nurse Practitioner Family; Admitting Provider Internal Medicine; Emergency Provider Student in an Organized Health Care Education/Training Program; Referring Provider Student in an Organized Health Care Education/Training Program; Visit Provider Internal Medicine
DX: I21.4 Non-ST elevation (NSTEMI) myocardial infarction (principal); I48.0 Paroxysmal atrial fibrillation; E11.9 Type 2 diabetes mellitus without complications; E78.5 Hyperlipidemia, unspecified; I10 Essential (primary) hypertension; Z79.84 Long term (current) use of oral hypoglycemic drugs; Z20.822 Contact with and (suspected) exposure to COVID-19
CPT/HCPCS: 36415; 71045; 71275; 76705; 80048; 80053; 80061; 82550; 82553; 82962; 83036; 83690; 83735; 83880; 84443; 84484; 85025; 85027; 85379; 85610; 85730; 87635; 93005; 93307; 96374; 99284; C9803; J1644; J1815; Q9967

== ENCOUNTER → 2022-04-08 12:18 | Outpatient (CLI) | payer OTHER, SELFPAY ==
[2021-09-09 18:16] VITALS: BMI 26.6
--- NOTE | 2022-04-08 | DI.ECHO.S_ITS ---
[facility]---------+ [facility] +---------+ : : [address] : [address] : : : : [id number] : : : : Phone: [phone]---------+ Echocardiogram Report + + :Name: SUZY RENEE Study Date: 04/08/2022 Height: 61.5 in: :[facility] ReadingLocation: Weight: 147 lb : : Gender: Female BSA: 1.7 m2 : :: 1960 Age: 61 yrs BP: 127/76 mmHg: :Reason For Study: TAKOTSUBO SYNDROM : :Ordering Physician: SARITA, : :RANDY Performed By: Dorothy Atwood : :Referring: RANDY HERMAN : + + Interpretation Summary Limited Echo: 1) Normal left ventricular size, thickness, wall motion, and systolic function (EF 60-65%). 2) Compared to the Echo done 09/10/2021, LVEF has improved from 50-55% to 60- 65% and wall motion abnormalities have resolved on this study. Procedure: A two-dimensional transthoracic echocardiogram with color flow and Doppler was performed in limited views only to assess Takotsubo. The study quality was technically adequate. Comparison is made with the echocardiogram of 09/10/2021. Left Ventricle: The left ventricle is normal in size and wall thickness. The ejection fraction is estimated to be 60-65%. Left ventricular wall motion is normal. Right Ventricle: The right ventricle grossly appears normal in size with probable normal systolic function. Atria: The left atrium grossly appears normal in size. Right atrial size is normal. Great Vessels: The IVC is of normal diameter and collapses greater than 50% with a sniff. This suggests a low right atrial pressure of 3 mm Hg. Pericardium/ Pleura There is no pericardial effusion. There is no pleural effusion. MMode/2D Measurements & Calculations LVIDd: 4.6 cm LA A4 area: 20.3 cm2 LVIDs: 2.6 cm LA length (vol): 5.1 cm FS: 42.6 % IVSd: 0.64 cm LVPWd: 0.75 cm LV erwin. diameter/BSA (cm/m^2): 2.7 LV sys. diameter/BSA (cm/m^2): 1.6 RA long axis: 4.6 cm RVD1 (basal): 3.8 cm RA area: 16.3 cm2 RA vol: 48.8 ml RA : 29.3 ml/m2 IVC diam: 1.5 cm Reading Physician:03:15 PM
== END ==
PROVIDERS: Referring Provider Internal Medicine Cardiovascular Disease; Visit Provider Internal Medicine Cardiovascular Disease
DX: I51.81 Takotsubo syndrome (principal)
CPT/HCPCS: 93307

== ENCOUNTER 2023-09-30 11:29 | Day surgery (SDC) | payer OTHER, SELFPAY ==
[2021-09-09 18:16] VITALS: BMI 26.6
--- NOTE | 2023-09-30 | PATH_ITS ---
[facility] Accession Number: [id number] No. of containers..02 Tissue . 01 Material submitted: . PART A: colon - DESCENDING POLYP PART B: colon - SIGMOID POLYP . 01 Diagnosis: A. COLON, DESCENDING, POLYP BIOPSY: - HYPERPLASTIC POLYP. -- B. COLON, SIGMOID, POLYP BIOPSY: - BENIGN COLONIC MUCOSA WITH SUBEPITHELIAL BENIGN SPINDLE CELL PROLIFERATION, SEE COMMENT. - NEGATIVE FOR DYSPLASIA. -- Comment for Part B: There is focal expansion of the colonic lamina propria by monomorphic benign spindle cell proliferation with bland morphology, and abundant eosinophilic cytoplasm, without necrosis or increased mitosis. The differential diagnosis includes, benign fibroblastic polyp/perineuroma, mucosal Schwann cell hamartoma, and benign leiomyoma. An attempt was made to classify this entity by performing the following immunostains S100, Desmin, CD117, WEI, and SOX-10, however the material was limited, and the lesion disappeared on the subsequent levels. Clinical correlation and follow up is recommended. TXN 10/15/2023 1614 Local . 01 Electronically signed: . Josh Barbosa MD, Pathologist NPI- [id number] . 01 Gross description: . A. Received in formalin, labeled with the patient's name, , and descending polyp, and consists of two banerjee, soft tissue fragments measuring 0.5 cm each in greatest dimension. Submitted entirely in cassette A1. B. Received in formalin, labeled with the patient's name, , and sigmoid polyp, and consists of a single banerjee, soft tissue fragment measuring 1.0 cm in greatest dimension. Submitted entirely in cassette B1. ([id number]) /LOIS 10/02/2023 1932 Local . 01 Pathologist provided ICD-10: Z12.11 . 01 CPT . 975229, [id number] Specimen Comment: A courtesy copy of this report has been sent to [phone] Performed at: 01 [facility] [address] [place] [address], [place], [place] [id number] MD Pawan Couch MD Phone: [phone]
[2023-09-30] MEDS: LACTATED RINGERS 1,000 ML 42 ML IV (11:40)
[2023-09-30 12:00] VITALS: BP 145/69; PULSE 58; RESP 16; TEMP 36.6; O2SAT 96; BMI 27.3
--- NOTE | 2023-09-30 12:07 | P.HP_ITS ---
History of Present Illness History of Present Illness Date Patient Seen: 09/30/23 Time Patient Seen: 12:07 Chief complaint: Colonoscopy Narrative: Rossy is a 62-year-old woman who is here for colonoscopy. She had 1 about 11 years ago that was normal. No family history of colon cancer. [facility] Medical History (Updated 09/30/23 @ 12:08 by Barry Tam MD) History of uterine fibroid Tobacco abuse Atrial fibrillation by electrocardiogram Non-insulin dependent type 2 diabetes mellitus Hyperlipidemia associated with type 2 diabetes mellitus Essential hypertension Surgical History (Updated 09/09/21 @ 23:16 by JACINDA Cota-) History of myomectomy Family History Mother Diabetes mellitus Father Hypertension Social History household members: spouse Smoking Status: Never smoker alcohol intake: never Meds Home Medications and Allergies Home Medications Medication Instructions Recorded Confirmed Type Glucophage XR 500 mg PO DAILY 09/09/21 09/09/21 History diltiazem HCl 180 mg 180 mg PO DAILY 09/09/21 09/09/21 History capsule,extended release 24 hr (Cardizem CD) rosuvastatin 2.5 mg PO BEDTIME 09/09/21 09/09/21 History Allergies Allergy/AdvReac Type Severity Reaction Status Date / Time No Known Drug Allergies Allergy Verified 09/09/21 12:08 Exam Vital Signs (past 8 hours): - 09/30/23 12:00 Temperature 97.9 F Pulse Rate 58 L Respiratory Rate 16 Blood Pressure 145/69 H Pulse Oximetry 96 Oxygen Delivery Method Room Air Oxygen Delivery Method Room Air Const General: healthy appearing Assessment & Plan Assessment and plan (1) Colon cancer screening: Status: Acute Plan We reviewed the risks and benefits of colonoscopy for colon cancer screening and she would like to proceed.
--- NOTE | 2023-09-30 12:43 | PM.OP.COLON ---
Operative Date/Time/Diagnoses Date of procedure: 09/30/23 Time of procedure: 12:44 Pre-op diagnosis: Colon cancer screening Post-op diagnosis: same Procedure & Clinicians Study performed: Colonoscopy Same procedure as scheduled: Yes Surgeon: Barry Tam Procedure Notes Procedure in detail: Surgeon: Barry Tma MD Anesthesia: Maria Elena Rhodes CRNA Procedure: The patient was brought to the endoscopy suite, placed in left lateral decubitus position. The patient was connected to monitoring devices. A time-out was performed. Sedation was administered. Once the patient was adequately sedated, a digital rectal exam was performed and was normal. The scope was then inserted and advanced to the cecum where the appendiceal orifice was identified and photographed. The scope was then slowly withdrawn over greater than 6 minutes. The mucosa was thoroughly inspected. There was a 5 mm polyp in the descending colon removed with a cold snare. There was a 5 mm polyp in the sigmoid colon removed with cold snare. There was ongoing bleeding from the second polypectomy site and so an 11 mm sure clip was applied to the mucosal defect with good effect. No other abnormalities were seen. The scope was retroflexed in the rectum. Internal hemorrhoids were noted. The scope was straightened and removed. The patient was awakened and brought to recovery. Scope withdrawal time: 14 minutes Sedation time: 20 minutes EBL: 10 mL Findings: 5 mm polyp in the descending colon and 5 mm polyp in the sigmoid colon Post-procedure Disposition: PACU
[2023-09-30 12:45] VITALS: BP 91/60; PULSE 57; RESP 18; TEMP 36.2; O2SAT 95
[2023-09-30 12:50] VITALS: BP 99/64; PULSE 53; PULSE 58; RESP 18; O2SAT 94; O2SAT 96
[2023-09-30 12:56] VITALS: BP 107/58; PULSE 59; RESP 18; TEMP 36.3; O2SAT 95
[2023-09-30 13:00] VITALS: BP 101/63; PULSE 53; RESP 16; O2SAT 96
== END 2023-09-30 13:59 | disposition home or self-care (01) ==
PROVIDERS: PCP Student in an Organized Health Care Education/Training Program; Referring Provider Surgery; Visit Provider Surgery
PROC: 0DJD8ZZ Inspection of Lower Intestinal Tract, Via Natural or Artificial Opening Endoscopic (ICD-10-PCS; CPT 45378; principal; 2023-09-30 12:45)
DX: Z12.11 Encounter for screening for malignant neoplasm of colon (principal); K63.5 Polyp of colon
CPT/HCPCS: 45385